=== PATIENT | female | born 1985 | race Caucasian/White ===

== ENCOUNTER 2016-07-24 06:18 | Day surgery (SDC) | payer OTHER ==
[~2016-07-24] VITALS: Ht 175.3 cm; Wt 99.3 kg
[~2016-07-24 06:18] MED LIST: BREWER'S YEAST500 MG PO; BUSPAR10 MG PO; BUSPAR15 MG PO; ENDOCET 5-3251 EACH PO; MICRONOR0.35 MG PO; MOTRIN800 MG PO; PRENATAL TABLE1 EAC3 PO; RANITIDINE HCL150 MG PO; TYLENOL EXTRA500 MG PO; VENTOLIN HFA18 GM IH; VOLTAREN-XR100 MG PO; ZANTAC150 MG PO; ZANTAC75 M1 PO; ZOLOFT100 MG PO; ZOLOFT50 MG PO
[2016-07-24 06:52] VITALS: BP 110/62
[2016-07-24] MEDS ORDERED: MOTRIN800 MG PO (09:50)
[2016-07-24] MEDS ORDERED: PERCOCET 5/31 TABLET PO (09:50)
[2016-07-24 11:05] VITALS: BP 110/67
[2016-07-24 12:08] VITALS: BP 119/74
[2016-07-24 13:18] VITALS: BP 114/73
== END 2016-07-24 13:00 | disposition home or self-care (01) ==
LOC: SDC 06:18
DX: N93.8 Other specified abnormal uterine and vaginal bleeding (principal); Z30.2 Encounter for sterilization; E78.5 Hyperlipidemia, unspecified; J45.909 Unspecified asthma, uncomplicated; M41.9 Scoliosis, unspecified; Z82.61 Family history of arthritis; Z83.3 Family history of diabetes mellitus; Z82.49 Family history of ischemic heart disease and other diseases of the circulatory system; Z80.0 Family history of malignant neoplasm of digestive organs; Z87.891 Personal history of nicotine dependence
CPT/HCPCS: 88305; J0330; J1100; J1170; J2405; J2710; J2765; J3010